=== PATIENT | female | born 1950 | race Caucasian/White ===

== ENCOUNTER 2017-10-27 19:47 | Emergency (ER) | payer MEDICARE ==
[2017-10-27] MEDS: IV NORMAL SALINE 1000ML BAG 1,000 ML IV (19:51)
[2017-10-27 20:10] LABS: AGAP ISTAT 21 mmol/L (6-14); BUN ISTAT 35 mg/dL (8-26); CHLORIDE ISTAT 98 mmol/L (98-110); CREATININE ISTAT 1.5 mg/dL (0.5-1.4); GLUCOSE ISTAT 311 mg/dL (70-99); HEMATOCRIT ISTAT 34 % (36-40); HEMOGLOBIN ISTAT 11.6 g/dL (12-15); ION CA ISTAT 1.11 mmol/L (1.13-1.32); POTASSIUM ISTAT 5.6 mmol/L (3.5-5.0); SODIUM ISTAT 131 mmol/L (135-145); TOT CO2 ISTAT 18 mmol/L (23-32)
[2017-10-27 20:18] LABS: TROPONIN BY ISTAT 0.09 ng/ml (<0.08)
[2017-10-27] MEDS ORDERED: EPINEPHrine VIAL 30 MG/30 ML VIAL ×2 (20:30→21:00)
[2017-10-27] MEDS ORDERED: ATROPINE 0.5 MG/5 ML DISP.SYRINGE. (21:00)
[2017-10-27] MEDS ORDERED: EPINEPHrine SYRINGE 1 MG/10 ML SYRINGE (21:00)
== END 2017-10-27 20:38 | disposition expired ==
LOC: ER 19:47
DX: I46.9 Cardiac arrest, cause unspecified (principal)
CPT/HCPCS: 43752; 71045; 74018; 80047; 84484; 92950; 93005; 99291-25; 99292; J0171; J0461; J7030; J7050